=== PATIENT | male | born 1945 | race Hispanic/Latino ===

== ENCOUNTER 2020-04-08 19:45 | Emergency (ER) | payer MEDICARE, MEDICAID, OTHER ==
--- NOTE | 2020-04-08 20:36 | RAD ---
CHEST ONE VIEW: 04/08/20 HISTORY: Fever, chills, COVID positive. COMPARISON: 03/09/20 exam. Heart size and mediastinum are within normal limits. Infiltrative changes are seen in the region of the lingula and right mid and lower lung zones. IMPRESSION: Multifocal pneumonia. POS: NIKHIL
[2020-04-08 20:37] LABS: #Lymphocytes 2.2 thou/uL (1.20-3.40); #Monocytes 0.3 thou/uL (0.11-0.59); #Neutrophils 2.9 thou/uL (1.40-6.50); %Basophils 0.7 % (0.0-1.0); %Eosinophils 0.1 % (0.0-10.0); %Lymphocytes 39.6 % (21.0-51.0); %Monocytes 6.2 % (0.0-10.0); %Neutrophils 53.4 % (42.0-75.0); Hemoglobin 15.5 g/dL (14.0-18.0); Mean Corpuscular HGB CONC 32.5 g/dL (32.0-36.0); Mean Corpuscular Hemoglobin 29.9 pg (27.0-31.0); Mean Corpuscular Volume 91.8 fL (78.0-98.0); Mean Platelet Volume 9.4 fL (7.4-10.4); Platelet Count 150 thou/uL (130-400); RBC Distribution Width 12.1 % (11.5-14.5); Red Blood Cell (RBC) Count 5.18 mill/uL (4.70-6.10); White Blood Cell (WBC) Count 5.5 thou/uL (4.8-10.8)
[2020-04-08 20:57] LABS: Bilirubin Negative (Negative); Blood, Urine Negative (Negative); Clarity Clear (Clear); Glucose, Urine (Dipstick) Normal (Negative); Leukocyte Negative Leu/uL (Negative); Mucous/LPF Rare LPF (<2+); Nitrite Negative (Negative); Protein, Urine (Dipstick) 30 mg/dL (Neg-Trace); Squamous Epithelial 0-3 HPF (0-3); Urobilinogen Normal mg/dL (Less than 2); WBC/HPF 0-3 HPF (0-3)
[2020-04-08 21:04] LABS: Bacteria/HPF Rare-Few HPF (None Seen)
[2020-04-08 21:08] LABS: ALT (SGPT) 28 U/L (8-55); AST (SGOT) 41 U/L (5-34); Alkaline Phosphatase 67 U/L (40-110); Anion Gap 13 mmol/L (10-20); BUN (Urea Nitrogen) 11 mg/dL (8.4-25.7); Bilirubin, Total 0.7 mg/dL (0.2-1.2); Calc. Creatinine Clearance 0 mL/min (70-130); Calcium 8.4 mg/dL (7.8-10.44); Carbon Dioxide 28 mmol/L (23-31); Chloride 99 mmol/L (98-107); Estimated GFR-MDRD 68; Globulin 3.9 g/dL (2.4-3.5); Glucose 103 mg/dL (83-110); Potassium 3.5 mmol/L (3.5-5.1); Protein, Total 7.9 g/dL (5.8-8.1); Sodium 136 mmol/L (136-145)
[2020-04-08] MEDS ORDERED: Acetaminophen 500 MG TAB ONE (22:21)
== END 2020-04-08 23:55 | disposition home or self-care (01) ==
LOC: ERS 19:45
DX: U07.1 COVID-19 (principal); J12.89 Other viral pneumonia
CPT/HCPCS: 71045; 80053; 81003; 81015; 83605; 85025; 87040; 96360

== ENCOUNTER 2020-05-03 05:49 | Emergency (ER) | payer MEDICARE, MEDICAID, OTHER ==
[2020-05-03 06:43] LABS: Hemoglobin 14.9 g/dL (14.0-18.0); Mean Corpuscular HGB CONC 33.4 g/dL (32.0-36.0); Mean Corpuscular Hemoglobin 30.6 pg (27.0-31.0); Mean Corpuscular Volume 91.6 fL (78.0-98.0); Mean Platelet Volume 8.9 fL (7.4-10.4); Platelet Count 190 thou/uL (130-400); RBC Distribution Width 13.1 % (11.5-14.5); Red Blood Cell (RBC) Count 4.85 mill/uL (4.70-6.10); White Blood Cell (WBC) Count 4.9 thou/uL (4.8-10.8)
[2020-05-03 07:08] LABS: ALT (SGPT) 21 U/L (8-55); AST (SGOT) 23 U/L (5-34); Albumin 3.5 g/dL (3.4-4.8); Alkaline Phosphatase 64 U/L (40-110); Anion Gap 10 mmol/L (10-20); BUN (Urea Nitrogen) 10 mg/dL (8.4-25.7); Bilirubin, Total 0.5 mg/dL (0.2-1.2); Calc. Creatinine Clearance 0 mL/min (70-130); Calcium 9.1 mg/dL (7.8-10.44); Carbon Dioxide 28 mmol/L (23-31); Chloride 104 mmol/L (98-107); Estimated GFR-MDRD 76; Globulin 3.8 g/dL (2.4-3.5); Glucose 96 mg/dL (83-110); Potassium 4.2 mmol/L (3.5-5.1); Protein, Total 7.3 g/dL (5.8-8.1); Sodium 138 mmol/L (136-145)
[2020-05-03 07:40] LABS: Eosinophils 5 % (0-10); Lymphocytes 62 % (21-51); MDiff Complete? YES; Monocytes 11 % (0-10); Neutrophil 22 % (42-75); Platelet Morphology Comment Appears Adequate; RBC Morphology Normal
[2020-05-03] MEDS ORDERED: Ketorolac Tromethamine 30 MG/ML VIAL ONE (07:40)
[2020-05-03 07:47] LABS: Acetaminophen Less than 6.0 mcg/mL (10.0-30.0); Alcohol Less than 10 mg/dL (Less than 10); CK (CPK) 34 U/L (30-200); Salicylate Less than 8.0 mg/dL (15.0-30.0)
--- NOTE | 2020-05-03 08:16 | RAD ---
CHEST 1 VIEW: INDICATION: History of chest pain and history of positive COVID test in the past. COMPARISON: Prior study dated 04/09/2020. FINDINGS: Bilateral airspace disease appears mildly improved from the prior examination. Mild persistent areas of interstitial and ground-glass opacity remain within the peripheral right lung. There is improvem ent in the airspace opacity seen involving the left mid lung and left lower lobe on the prior examina tion. Heart size is normal-appearing. No acute osseous abnormality is evident. IMPRESSION: Improving bilateral pneumonia. POS: BH
== END 2020-05-03 08:14 | disposition home or self-care (01) ==
LOC: ERS 05:49
DX: M94.0 Chondrocostal junction syndrome [Tietze] (principal); Z79.899 Other long term (current) drug therapy
CPT/HCPCS: 71045; 80053; 80307; 82550; 84484; 85025; 93005; 96374; J1885

== ENCOUNTER 2020-06-16 12:42 | Outpatient (CLI) | payer MEDICARE, MEDICAID ==
--- NOTE | 2020-06-16 13:22 | RAD ---
EXAM: Chest 2 views: HISTORY: Dyspnea COMPARISON: 03/09/2020 FINDINGS: There is a normal-sized cardiomediastinal silhouette. There is no evidence of consolidation, mass, or pleural effusion. The bones are unremarkable. IMPRESSION: No evidence of acute cardiopulmonary disease
== END 2020-06-16 12:43 | disposition home or self-care (01) ==
LOC: BICRAD 12:42
PROVIDERS: ATTEND Internal Medicine Pulmonary Disease
DX: R06.00 Dyspnea, unspecified (principal)
CPT/HCPCS: 71046

== ENCOUNTER 2020-10-03 17:57 | Emergency (ER) | payer MEDICARE, MEDICAID ==
[2020-10-03] MEDS ORDERED: Bacitracin 1 PK ONE (18:34)
== END 2020-10-03 19:06 | disposition home or self-care (01) ==
LOC: ERS 17:57
DX: S51.011A Laceration without foreign body of right elbow, initial encounter (principal); S00.83XA Contusion of other part of head, initial encounter; Z79.899 Other long term (current) drug therapy; W01.198A Fall on same level from slipping, tripping and stumbling with subsequent striking against other object, initial encounter
CPT/HCPCS: 12001

== ENCOUNTER 2023-03-01 14:33 | Emergency (ER) | payer OTHER, MEDICAID ==
[2023-03-01 16:15] LABS: SARS-CoV-2 NAA Rapid Test DETECTED (NotDetected)
[2023-03-01] MEDS ORDERED: Acetaminophen 500 MG TAB ONE (16:26)
[2023-03-01 16:38] LABS: Bacteria/HPF None Seen HPF (None Seen); Bilirubin Negative (Negative); Blood, Urine Trace (Negative); Clarity Clear (Clear); Glucose, Urine (Dipstick) Normal (Negative); Ketone, Urine Negative (Negative); Leukocyte 500 Leu/uL (Negative); Nitrite Negative (Negative); Protein, Urine (Dipstick) 10 mg/dL (Neg-Trace); RBC/HPF 0-3 HPF (0-3); Specific Gravity, Urine 1.023 (1.002-1.036); Squamous Epithelial 0-3 HPF (0-3); Urobilinogen Normal mg/dL (Less than 2); pH, Urine 5.5 (5.0-9.0)
== END 2023-03-01 17:08 | disposition home or self-care (01) ==
LOC: ERS 14:33
DX: U07.1 COVID-19 (principal); B36.9 Superficial mycosis, unspecified; H62.41 Otitis externa in other diseases classified elsewhere, right ear
CPT/HCPCS: 0240U; 87086; 81003; 81015; 99284

== ENCOUNTER 2023-08-15 01:05 | Observation (INO) | payer OTHER, MEDICAID ==
[2023-08-15 01:37] LABS: #Basophils 0.1 thou/uL (0.0-0.2); #Eosinphils 0.2 thou/uL (0.0-0.7); #Monocytes 0.6 thou/uL (0.11-0.59); #Neutrophils 2.4 thou/uL (1.40-6.50); %Basophils 0.8 % (0.0-1.0); %Eosinophils 2.4 % (0.0-10.0); %Lymphocytes 58.4 % (21.0-51.0); %Monocytes 7.1 % (0.0-10.0); Hematocrit 40.9 % (42.0-52.0); Hemoglobin 14.2 g/dL (14.0-18.0); Mean Corpuscular HGB CONC 34.7 g/dL (32.0-36.0); Mean Corpuscular Hemoglobin 30.6 pg (27.0-31.0); Mean Corpuscular Volume 88.1 fl (78.0-98.0); Mean Platelet Volume 10.8 fL (7.4-10.4); Platelet Count 194 10x3/uL (130-400); RBC Distribution Width 14.1 % (11.5-14.5); Red Blood Cell (RBC) Count 4.64 mill/uL (4.70-6.10); White Blood Cell (WBC) Count 7.9 10x3/uL (4.8-10.8)
[2023-08-15] MEDS ORDERED: Mag-Al 1200 mg/1200 mg/30 ML UDCUP ONE (02:00)
[2023-08-15] MEDS ORDERED: Morphine 4 MG/ML VIAL ONE (02:00)
[2023-08-15] MEDS ORDERED: Ondansetron PF 4 MG/2 ML Vial ONE (02:00)
[2023-08-15 02:10] LABS: Troponin I Less than 0.010 ng/mL (< 0.028)
[2023-08-15 02:15] LABS: Albumin 3.9 g/dL (3.4-4.8)
[2023-08-15 02:16] LABS: Chloride 107 mmol/L (98-107); Potassium 3.7 mmol/L (3.5-5.1); Sodium 140 mmol/L (136-145)
[2023-08-15 02:17] LABS: Calcium 9.1 mg/dL (7.8-10.44); Glucose 126 mg/dL (83-110)
[2023-08-15 02:18] LABS: Globulin 3.3 g/dL (2.4-3.5); Protein, Total 7.2 g/dL (5.8-8.1)
[2023-08-15 02:19] LABS: Anion Gap 15 mmol/L (10-20); Bilirubin, Total 0.7 mg/dL (0.2-1.2); Carbon Dioxide 22 mmol/L (23-31)
[2023-08-15 02:20] LABS: Alkaline Phosphatase 67 U/L (40-110)
[2023-08-15 02:21] LABS: Calc. Creatinine Clearance 0 mL/min (70-130); Estimated GFR 62
[2023-08-15 02:22] LABS: BUN (Urea Nitrogen) 18 mg/dL (8.4-25.7)
[2023-08-15 02:23] LABS: ALT (SGPT) 26 U/L (8-55); AST (SGOT) 31 U/L (5-34); Lipase 36 U/L (8-78)
[2023-08-15] MEDS ORDERED: Aspirin Chewable 81 MG TAB ONE (03:16)
[2023-08-15 03:40] LABS: Bacteria/HPF None Seen HPF (None Seen); Bilirubin Negative (Negative); Blood, Urine Negative (Negative); CAUTI Indications for Culture Pelvic or flank pain; Clarity Clear (Clear); Glucose, Urine (Dipstick) Normal (Negative); Ketone, Urine Negative (Negative); Leukocyte 25 Leu/uL (Negative); Nitrite Negative (Negative); Protein, Urine (Dipstick) Negative (Neg-Trace); Renal Epithelial 0-3 HPF (None Seen); Specific Gravity, Urine 1.028 (1.002-1.036); Squamous Epithelial 0-3 HPF (0-3); Urine Culture Reflex No No; Urobilinogen Normal mg/dL (Less than 2); WBC/HPF 0-3 HPF (0-3)
[2023-08-15] MEDS ORDERED: Ondansetron PF 4 MG/2 ML Vial IVP PRN (04:37)
[2023-08-15] MEDS ORDERED: Ondansetron ODT 4 MG TAB PO PRN (04:37)
[2023-08-15] MEDS ORDERED: Senokot S 8.6-50 MG TAB PO PRN (04:37)
[2023-08-15] MEDS ORDERED: Nitroglycerin 0.4 MG TAB (25 Tab Bottle) SL PRN (04:37)
[2023-08-15] MEDS ORDERED: Bisacodyl 5 MG TAB PO PRN (04:37)
[2023-08-15] MEDS ORDERED: Acetaminophen 325 MG TAB PO PRN (04:37)
[2023-08-15] MEDS ORDERED: Ipratropium/Albuterol 3 ML NEB NEB SCH (04:45)
[2023-08-15] MEDS ORDERED: cefTRIAXone\\ROCEPHIN 2 GM in Sodium Chloride 0.9% 100 ML IVPB SCH (05:00)
[2023-08-15] MEDS ORDERED: cefTRIAXone (ROCEPHIN) 2 GM VIAL ONE (05:35)
[2023-08-15 05:39] LABS: Hemoglobin A1c 5.7 % (4.0-6.0)
[2023-08-15 05:46] LABS: Cardiac Risk 7.8 (Less than 4.5); Cholesterol 187 mg/dl (< 200 Desired); HDL Cholesterol 24 mg/dL (>60 Neg Risk); LDL Cholesterol, Calculated 96 mg/dL; Magnesium 3.4 mg/dL (1.6-2.6); Triglycerides 332 mg/dL (Less than 150)
[2023-08-15] MEDS ORDERED: ALPRAZolam 0.5 MG TAB PO PRN (07:43)
[2023-08-15 08:15] LABS: Troponin I Less than 0.010 ng/mL (< 0.028)
[2023-08-15 08:44] VITALS: BMI 29.7
[2023-08-15] MEDS ORDERED: Aspirin Chewable 81 MG TAB PO SCH (09:00)
[2023-08-15] MEDS ORDERED: Fenofibrate Nanocrystallized 145 MG TAB PO SCH (09:00)
[2023-08-15] MEDS ORDERED: Polyethylene Glycol 3350 17 GM Packet PO SCH (09:00)
[2023-08-15] MEDS ORDERED: Tamsulosin HCl 0.4 MG CAP PO SCH (09:00)
[2023-08-15 12:33] LABS: Troponin I Less than 0.010 ng/mL (< 0.028)
[2023-08-15] MEDS ORDERED: Regadenoson 0.4 MG/5 ML SYRINGE ONE (13:51)
[2023-08-15] MEDS ORDERED: Iopamidol-370 76% 500 ML MDV (1 ML CHARGE) ONE (15:48)
[2023-08-15 15:53] VITALS: BP 121/73; TEMP 97
== END 2023-08-15 18:31 | disposition home or self-care (01) ==
LOC: ERS 01:05 → ERHOLD 04:05 → 2NO 08:36
PROVIDERS: ADMIT Student in an Organized Health Care Education/Training Program; ATTEND Nurse Practitioner Acute Care
DX: R07.9 Chest pain, unspecified (principal); K59.00 Constipation, unspecified; N39.0 Urinary tract infection, site not specified; N41.0 Acute prostatitis; E78.1 Pure hyperglyceridemia; K21.9 Gastro-esophageal reflux disease without esophagitis; N40.0 Benign prostatic hyperplasia without lower urinary tract symptoms; F41.9 Anxiety disorder, unspecified; Z88.0 Allergy status to penicillin; Z79.899 Other long term (current) drug therapy; Z90.49 Acquired absence of other specified parts of digestive tract; Z86.73 Personal history of transient ischemic attack (TIA), and cerebral infarction without residual deficits
CPT/HCPCS: 71045; 71275; 74177; 78452; 80061; 81001; 83036; 83690; 83735; 83880; 84439; 84479; 84484 ×2; 85379; 93005; 93017; 94760; 96375; A9500; G0378; J2785; 36415; 36416; 80053; 84443; 85025; 96374; J0696; J2270; J2405; J3490; Q9967

== ENCOUNTER 2023-09-06 12:57 | Emergency (ER) | payer OTHER, MEDICAID ==
[2023-09-06 13:35] LABS: #Basophils 0.1 thou/uL (0.0-0.2); #Eosinphils 0.1 thou/uL (0.0-0.7); #Monocytes 0.6 thou/uL (0.11-0.59); #Neutrophils 3.3 thou/uL (1.40-6.50); %Basophils 0.7 % (0.0-1.0); %Eosinophils 1.6 % (0.0-10.0); %Lymphocytes 42.1 % (21.0-51.0); %Monocytes 8.6 % (0.0-10.0); %Neutrophils 46.7 % (42.0-75.0); Hematocrit 41.4 % (42.0-52.0); Hemoglobin 13.9 g/dL (14.0-18.0); Mean Corpuscular HGB CONC 33.6 g/dL (32.0-36.0); Mean Corpuscular Hemoglobin 30.4 pg (27.0-31.0); Mean Corpuscular Volume 90.6 fl (78.0-98.0); Mean Platelet Volume 10.7 fL (7.4-10.4); Platelet Count 248 10x3/uL (130-400); Red Blood Cell (RBC) Count 4.57 mill/uL (4.70-6.10); White Blood Cell (WBC) Count 7.1 10x3/uL (4.8-10.8)
[2023-09-06 13:59] LABS: ALT (SGPT) 67 U/L (8-55); AST (SGOT) 95 U/L (5-34); Albumin 4.1 g/dL (3.4-4.8); Alkaline Phosphatase 94 U/L (40-110); Anion Gap 12 mmol/L (10-20); BUN (Urea Nitrogen) 18 mg/dL (8.4-25.7); Bilirubin, Total 0.4 mg/dL (0.2-1.2); Calc. Creatinine Clearance 0 mL/min (70-130); Carbon Dioxide 24 mmol/L (23-31); Chloride 105 mmol/L (98-107); Estimated GFR 64; Globulin 3.2 g/dL (2.4-3.5); Glucose 107 mg/dL (83-110); Potassium 3.7 mmol/L (3.5-5.1); Protein, Total 7.3 g/dL (5.8-8.1); Sodium 137 mmol/L (136-145)
[2023-09-06 14:15] LABS: Bacteria/HPF None Seen HPF (None Seen); Bilirubin Negative (Negative); Blood, Urine Negative (Negative); CAUTI Indications for Culture Dysuria,urgency,freq; Clarity Clear (Clear); Glucose, Urine (Dipstick) Normal (Negative); Ketone, Urine Negative (Negative); Leukocyte Negative Leu/uL (Negative); Nitrite Negative (Negative); Protein, Urine (Dipstick) Negative (Neg-Trace); RBC/HPF 0-3 HPF (0-3); Specific Gravity, Urine 1.019 (1.002-1.036); Squamous Epithelial None Seen HPF (0-3); Urobilinogen 3 mg/dL (Less than 2); WBC/HPF 0-3 HPF (0-3)
[2023-09-06 14:17] LABS: Urine Culture Reflex No No
[2023-09-06] MEDS ORDERED: HYDROcodone/Acetaminophen 5/325 mg Tablet ONE (15:19)
[2023-09-06] MEDS ORDERED: Ketorolac Tromethamine 30 MG/ML VIAL ONE (15:19)
== END 2023-09-06 15:29 | disposition home or self-care (01) ==
LOC: ERS 12:57
DX: N48.89 Other specified disorders of penis (principal); K21.9 Gastro-esophageal reflux disease without esophagitis
CPT/HCPCS: 80053; 81001; 85025; 96374; J1885

== ENCOUNTER 2024-04-30 19:57 | Emergency (ER) | payer OTHER, MEDICAID ==
[2024-04-30 21:23] LABS: #Basophils 0.04 10x3/uL (0.0-0.2); %Basophils 0.6 % (0.0-1.0); %Eosinophils 1.4 % (0.0-10.0); %Lymphocytes 34.8 % (21.0-51.0); %Monocytes 6.3 % (0.0-10.0); %Neutrophils 56.8 % (42.0-75.0); Hematocrit 41.5 % (42.0-52.0); Hemoglobin 14.1 g/dL (14.0-18.0); Mean Corpuscular Hemoglobin 29.4 pg (27.0-31.0); Mean Corpuscular Volume 86.5 fL (78.0-98.0); Mean Platelet Volume 10.8 fL (7.4-10.4); Platelet Count 209 10x3/uL (130-400)
[2024-04-30 21:49] LABS: Acetaminophen Less than 10 mcg/mL (10.0-30.0); Alcohol Less than 10.0 mg/dL (Less than 10); Salicylate Less than 8.0 mg/dL (15.0-30.0)
[2024-04-30 21:52] LABS: ALT (SGPT) 21 U/L (8-55); AST (SGOT) 24 U/L (5-34); Albumin 3.7 g/dL (3.4-4.8); Alkaline Phosphatase 69 U/L (40-110); Anion Gap 15 mmol/L (10-20); BUN (Urea Nitrogen) 16 mg/dL (8.4-25.7); Bilirubin, Total 0.6 mg/dL (0.2-1.2); Calc. Creatinine Clearance 0 mL/min (70-130); Calcium 8.8 mg/dL (7.8-10.44); Carbon Dioxide 21 mmol/L (23-31); Chloride 107 mmol/L (98-107); Estimated GFR 66; Globulin 3.5 g/dL (2.4-3.5); Glucose 113 mg/dL (83-110); Potassium 3.8 mmol/L (3.5-5.1); Protein, Total 7.2 g/dL (5.8-8.1); Sodium 139 mmol/L (136-145)
[2024-04-30 22:07] LABS: Amphetamine Not Detected (NotDetected); Barbiturates Screen Not Detected (NotDetected); Benzodiazepine Screen Detected (NotDetected); Cocaine Metabolite Screen Not Detected (NotDetected); Methadone Not Detected (NotDetected); Methamphetamine Not Detected (NotDetected); Opiate Screen Not Detected (NotDetected); Oxycodone Screen Not Detected (NotDetected); Phencyclidine (PCP) Not Detected (NotDetected); THC/Cannabinoid Screen Not Detected (NotDetected); Tricyclic Screen Not Detected (NotDetected)
[2024-04-30 22:35] LABS: Troponin I Less than 0.010 ng/mL (< 0.028)
[2024-04-30 23:11] LABS: Bilirubin Negative (Negative); Blood, Urine Negative (Negative); Glucose, Urine (Dipstick) Negative (Negative); Ketone, Urine Negative (Negative); Leukocyte Negative (Negative); Nitrite Negative (Negative); Protein, Urine (Dipstick) Negative (Neg-Trace)
[2024-04-30 23:16] LABS: Clarity Clear (Clear)
[2024-04-30 23:17] LABS: Bacteria/HPF None Seen HPF (None Seen); CAUTI Indications for Culture Alt mental st,lethar; RBC/HPF None Seen HPF (0-3); Squamous Epithelial 0-3 HPF (0-3); WBC/HPF 0-3 HPF (0-3)
[2024-04-30 23:24] LABS: Urine Culture Reflex No No
== END 2024-05-01 02:30 | disposition home or self-care (01) ==
LOC: ERS 19:57
DX: F43.20 Adjustment disorder, unspecified (principal); R10.9 Unspecified abdominal pain; Z55.6 Problems related to health literacy; K21.9 Gastro-esophageal reflux disease without esophagitis; Z79.899 Other long term (current) drug therapy
CPT/HCPCS: 71045; 74177; 80306; 80307; 81001; 84484; 93005; 99284; Q9967; 36415; 80053; 84443; 85025

== ENCOUNTER 2024-10-14 09:06 | Outpatient (CLI) | payer OTHER | END 2024-10-14 09:07 | disposition home or self-care (01) | LOC: BICRAD 09:06 | PROVIDERS: ATTEND Family Medicine | DX: M54.50 Low back pain, unspecified (principal); M47.816 Spondylosis without myelopathy or radiculopathy, lumbar region; Z85.038 Personal history of other malignant neoplasm of large intestine | CPT/HCPCS: 72100; 72170 ==

== ENCOUNTER 2025-11-03 13:39 | Inpatient (IN) | payer OTHER ==
[~2025-11-03 13:39] MED LIST: Iopamidol-370 76% 500 ML MDV (1 ML CHARGE) ONE
[2025-11-03 15:23] LABS: #Basophils 0.04 10x3/uL (0.0-0.2); #Eosinophils 0.05 10x3/uL (0.0-0.7); #Monocytes 0.76 10x3/uL (0.11-0.59); #Neutrophils 6.26 10x3/uL (1.40-6.50); %Basophils 0.5 % (0.0-1.0); %Eosinophils 0.6 % (0.0-10.0); %Lymphocytes 9.4 % (21.0-51.0); %Monocytes 9.7 % (0.0-10.0); %Neutrophils 79.7 % (42.0-75.0); Hematocrit 42.1 % (42.0-52.0); Hemoglobin 14.0 g/dL (14.0-18.0); Mean Corpuscular Hemoglobin 29.0 pg (27.0-31.0); Mean Corpuscular Volume 87.3 fL (78.0-98.0); Platelet Count 175 10x3/uL (130-400); Red Blood Cell (RBC) Count 4.82 mill/uL (4.70-6.10); White Blood Cell (WBC) Count 7.86 10x3/uL (4.8-10.8)
[2025-11-03] MEDS ORDERED: Acetaminophen 500 MG TAB ONE (15:29)
[2025-11-03] MEDS ORDERED: LevoFLOXacin 750 mg/D5W 150 ml Premix Bag ONE (15:36)
[2025-11-03 15:40] LABS: ALT (SGPT) 31 U/L (Less than 45); AST (SGOT) 52 U/L (11-34); Albumin 4.1 g/dL (3.1-4.5); Alkaline Phosphatase 54 U/L (40-110); Anion Gap 15 mmol/L (10-20); BUN (Urea Nitrogen) 17 mg/dL (8.4-25.7); Bilirubin, Total 0.8 mg/dL (0.3-1.2); Calc. Creatinine Clearance 0 mL/min (70-130); Calcium 9.0 mg/dL (7.8-10.44); Carbon Dioxide 25 mmol/L (23-31); Chloride 103 mmol/L (98-107); Globulin 3.6 g/dL (2.4-3.5); Glucose 115 mg/dL (83-110); Potassium 4.0 mmol/L (3.5-5.1); Sodium 139 mmol/L (136-145)
[2025-11-03 16:35] LABS: Bacteria/HPF None Seen HPF (None Seen); CAUTI Indications for Culture Pelvic or flank pain; Glucose, Urine (Dipstick) Normal (Negative); Leukocyte Negative Leu/uL (Negative); Protein, Urine (Dipstick) Negative (Neg-Trace); RBC/HPF 0-3 HPF (0-3); Specific Gravity, Urine 1.022 (1.002-1.036); WBC/HPF 0-3 HPF (0-3)
[2025-11-03 16:37] LABS: Urine Culture Reflex No No
[2025-11-03] MEDS ORDERED: Senokot S 8.6-50 MG TAB PO PRN (18:43)
[2025-11-03] MEDS ORDERED: Melatonin 3 MG TAB PO PRN (18:43)
[2025-11-03] MEDS ORDERED: Albuterol 2.5 MG (3 mL) NEB EZPAP PRN (18:45)
[2025-11-03] MEDS ORDERED: Dextrose 50% Abboject 50 ML SYRINGE SLOW IVP PRN (18:51)
[2025-11-03] MEDS ORDERED: Glucagon 1 MG/ML KIT IM PRN (18:51)
[2025-11-03 19:58] LABS: Actual Bicarbonate (HCO3v) 22.5 mEq/L (22-28); Base Excess -2.1 mEq/L (-2.0 to +3.0); Calcium, Ionized (venous) 1.04 mmol/L (1.16-1.32); Chloride (VBG) 106 mmol/L (98-106); Hematocrit-VBG 38 % (42.0-52.0); Hemoglobin (Hb) 12.8 g/dL (12.6-17.4); Potassium (VBG) 3.56 mmol/L (3.70-5.30); Sodium 138 mmol/L (133-146)
[2025-11-03 20:42] VITALS: BMI 27.6
[2025-11-03] MEDS: ALPRAZolam 0.5 MG TAB PO SCH (21:29)
[2025-11-03] MEDS: Acetaminophen 325 MG TAB PO PRN (22:43)
[2025-11-04 05:59] LABS: #Basophils 0.03 10x3/uL (0.0-0.2); #Eosinophils Less than 0.03 10x3/uL (0.0-0.7); #Monocytes 0.75 10x3/uL (0.11-0.59); #Neutrophils 4.07 10x3/uL (1.40-6.50); %Basophils 0.5 % (0.0-1.0); %Eosinophils 0.0 % (0.0-10.0); %Lymphocytes 22.3 % (21.0-51.0); %Monocytes 11.9 % (0.0-10.0); %Neutrophils 64.8 % (42.0-75.0); Hematocrit 35.6 % (42.0-52.0); Hemoglobin 11.7 g/dL (14.0-18.0); Mean Corpuscular Hemoglobin 29.2 pg (27.0-31.0); Mean Corpuscular Volume 88.8 fL (78.0-98.0); Platelet Count 152 10x3/uL (130-400); Red Blood Cell (RBC) Count 4.01 mill/uL (4.70-6.10); White Blood Cell (WBC) Count 6.28 10x3/uL (4.8-10.8)
[2025-11-04 06:16] LABS: Anion Gap 15 mmol/L (10-20); BUN (Urea Nitrogen) 18 mg/dL (8.4-25.7); Calc. Creatinine Clearance 52 mL/min (70-130); Calcium 8.0 mg/dL (7.8-10.44); Carbon Dioxide 23 mmol/L (23-31); Chloride 105 mmol/L (98-107); Glucose 89 mg/dL (83-110); Potassium 3.5 mmol/L (3.5-5.1); Sodium 139 mmol/L (136-145)
[2025-11-04] MEDS: Ondansetron PF 4 MG/2 ML Vial IVP PRN (09:21)
[2025-11-04] MEDS: Pantoprazole 40 MG DR.TAB PO SCH (09:21)
[2025-11-04] MEDS: ALPRAZolam 0.25 MG TAB PO PRN (19:55)
[2025-11-05 06:22] LABS: #Basophils Less than 0.03 10x3/uL (0.0-0.2); #Eosinophils Less than 0.03 10x3/uL (0.0-0.7); #Monocytes 0.52 10x3/uL (0.11-0.59); #Neutrophils 5.40 10x3/uL (1.40-6.50); %Basophils 0.1 % (0.0-1.0); %Eosinophils 0.0 % (0.0-10.0); %Lymphocytes 18.5 % (21.0-51.0); %Monocytes 7.1 % (0.0-10.0); %Neutrophils 74.0 % (42.0-75.0); Hematocrit 38.4 % (42.0-52.0); Hemoglobin 13.1 g/dL (14.0-18.0); Mean Corpuscular Hemoglobin 30.0 pg (27.0-31.0); Mean Corpuscular Volume 87.9 fL (78.0-98.0); Platelet Count 164 10x3/uL (130-400); Red Blood Cell (RBC) Count 4.37 mill/uL (4.70-6.10); White Blood Cell (WBC) Count 7.30 10x3/uL (4.8-10.8)
[2025-11-05 06:43] LABS: Anion Gap 15 mmol/L (10-20); BUN (Urea Nitrogen) 20 mg/dL (8.4-25.7); Calc. Creatinine Clearance 55 mL/min (70-130); Calcium 8.8 mg/dL (7.8-10.44); Carbon Dioxide 25 mmol/L (23-31); Chloride 103 mmol/L (98-107); Glucose 137 mg/dL (83-110); Potassium 4.4 mmol/L (3.5-5.1); Sodium 139 mmol/L (136-145)
[2025-11-05 09:06] VITALS: BP 105/63; TEMP 97.6
[2025-11-05] MEDS ORDERED: LevoFLOXacin 750 mg/D5W 750 MG in Premix 1 BAG IVPB SCH (15:00)
[2025-11-06] MEDS ORDERED: FLU (Fluad Triv) 25-26 (65UP)PF 45 MCG/0.5 ML Syringe IM ONE (09:00)
== END 2025-11-05 10:40 | disposition home or self-care (01) | DRG 871 ==
LOC: ERS 13:39 → T4-A 17:18
PROVIDERS: ADMIT Internal Medicine; ATTEND Internal Medicine
DX: A41.9 Sepsis, unspecified organism (principal); J18.9 Pneumonia, unspecified organism; J96.01 Acute respiratory failure with hypoxia; C18.9 Malignant neoplasm of colon, unspecified; J45.901 Unspecified asthma with (acute) exacerbation; K21.9 Gastro-esophageal reflux disease without esophagitis; R65.20 Severe sepsis without septic shock; N40.0 Benign prostatic hyperplasia without lower urinary tract symptoms; E11.9 Type 2 diabetes mellitus without complications; F41.9 Anxiety disorder, unspecified; E03.9 Hypothyroidism, unspecified; Z88.0 Allergy status to penicillin; Z86.018 Personal history of other benign neoplasm; Z93.3 Colostomy status; Z86.73 Personal history of transient ischemic attack (TIA), and cerebral infarction without residual deficits; Z79.890 Hormone replacement therapy; Z79.51 Long term (current) use of inhaled steroids; Z79.899 Other long term (current) drug therapy
CPT/HCPCS: 36415; 36416; 71045; 71275; 80048; 80053; 81001; 82805; 83036; 83605; 83690; 85025; 85379; 87040; 87086; 87428; 93005; 94640; 94760; 96365; J1956; J2405; J2919; Q9967